=== PATIENT | male | born 1990 | race Caucasian/White ===

== ENCOUNTER 2020-03-29 16:03 | Emergency (ER) | payer MEDICAID ==
[~2020-03-29] VITALS: Ht 180.3 cm; Wt 99.8 kg
[2020-03-29 16:08] VITALS: Ht 180.3 cm; Wt 99.8 kg
[2020-03-29 16:42] LABS: CALCIUM 8.7 mg/dL (8.5-10.1); CARBON DIOXIDE 23.2 mmol/L (21-32); CHLORIDE SERUM 103 mmol/L (98-107); CREATININE SERUM 0.9 mg/dL (0.7-1.3); GFR1 > 60 mL/min; GLUCOSE SERUM 92 mg/dL (74-106); POTASSIUM SERUM 3.7 mmol/L (3.5-5.1); SODIUM SERUM 138 mmol/L (136-145)
[2020-03-29 16:43] LABS: microscopic required? NO
[2020-03-29 16:43] LABS: BASOPHIL % 0.5 % (0-2); PLATELET COUNT 300 x10^3mcL (130-400); RED CELL DISTRIBUTION WIDTH 13.3 % (11.5-14.5)
[2020-03-29 16:45] LABS: ALBUMIN 4.4 g/dL (3.4-5.0); ALKALINE PHOSPHATASE 79 U/L (46-116); ALT/SGPT 107 U/L (16-63); AST/SGOT 48 U/L (15-37); BILIRUBIN TOTAL 0.3 mg/dL (0.20-1.00)
[2020-03-29 16:46] LABS: TOTAL PROTEIN, SERUM 8.3 g/dL (6.4-8.2)
[2020-03-29 17:02] LABS: UA SPECIFIC GRAVITY <=1.005 (1.005-1.035); urine erythrocyte NEGATIVE (NEGATIVE)
[2020-03-29 17:08] LABS: AMPHETAMINE QUAL UR NONE DETECTED (See below)
[2020-03-30 14:18] VITALS: BP 117/70
== END 2020-03-30 14:18 | disposition short-term general hospital (02) ==
LOC: ED 16:03
PROVIDERS: Emergency Medicine
DX: F20.0 Paranoid schizophrenia (principal); F32.9 Major depressive disorder, single episode, unspecified; F10.129 Alcohol abuse with intoxication, unspecified; F19.10 Other psychoactive substance abuse, uncomplicated
CPT/HCPCS: G0480; U0003-CS